=== PATIENT | female | born 1935 | race Caucasian/White ===

== ENCOUNTER 2017-06-05 10:52 | Inpatient (IN) | payer OTHER ==
[~2017-06-05] VITALS: Ht 172.7 cm; Wt 126.6 kg
--- NOTE | ~2017-06-05 | HC ---
[facility] [place] [address] CONSULTATION Name: TALATEHSAN XIMENA Room #: 355-P [facility] IN M.R.#: [id number] Admission: 06/05/17 Attend Phys: James Márquez MD Discharge: 06/11/17 Date of : 37 Report #: [id number] THIS REPORT FOR: //name// CC: James Pennington DATE OF SERVICE: 06/05/2017 HISTORY OF PRESENT ILLNESS: The patient is an 81-year-old female. I have known the patient, but not seen her professionally. I have seen her for 20 years. The patient apparently became sick approximately 2 weeks ago. She lives in [place], [place]. She was tested positive for influenza on 05/24/2017. This is now 06/05/2017. In any event, she had taken some medications and it is not exactly clear what, 1 pill for 5 days, but then went in with some progressive shortness of breath and had some cough, some intermittent fever, but then developed some chest pain, abdominal pain in [facility]. The troponin was 2.395, which is elevated over 0.56. Creatinine is 1.6. Chest x-ray was unremarkable. I have some of the records from [facility] before transfer. She is not completely clear on what her home medications are, she thinks lisinopril and may be a thyroid medicine. She has never had a cardiac issue before. EKG is sinus rhythm with delayed R waves, possibly T-wave inversions anteriorly and ST depression in V4 through V6. In comparison to the only EKG I see from [facility], this depression seems slightly more pronounced in the lateral leads. She is still complaining of some diffuse abdominal discomfort. She is somewhat of a difficult historian. There is no laboratory work drawn here, but I will obtain some currently and also a lipid profile. She says she has had no chest pain since she has been here, she is on a heparin drip, but complains of some tightness across the epigastric area and lower chest. She has been on lisinopril, hydrochlorothiazide, levothyroxine, lovastatin, meloxicam. PAST MEDICAL HISTORY: Positive for hypertension, some hypercholesterolemia, sinus surgery, DJD, hysterectomy, exploratory lap, sinus surgery. SOCIAL HISTORY: She is . She has children. No alcohol or tobacco use ever. FAMILY HISTORY: She states is strongly positive with multiple family members premature disease including her father. REVIEW OF SYSTEMS: Essentially negative, except for stated above, has not felt well for the last 2 weeks, but this discomfort is relatively recent. LABORATORY DATA: Pending, though we do not have any lab work here. H and H is 12.4 and 36, white count 8.5. Platelets 187, might add in BNP. PHYSICAL EXAMINATION: [facility] [address] [place] [address] CONSULTATION Name: EHSAN GILLILAND Room #: 355-P DIS IN M.R.#: [id number] Admission: 06/05/17 Attend Phys: James Márquez MD Discharge: 06/11/17 Date of : 37 Report #: [id number] GENERAL: She is alert. She does not appear to be overtly distressed, but she has some tightness, heparin drip is in place. VITAL SIGNS: Blood pressure 120/76, pulse is 78 and regular. HEENT: Eyes reveal xanthelasmas. Pharynx is clear. NECK: Shows preserved upstrokes without JVD or bruits. LUNGS: Clear. CARDIOVASCULAR: Regular rate and rhythm, S1, S2 distant. ABDOMEN: Obese. There is some diffuse tenderness in the epigastric area. EXTREMITIES: Reveal trace edema. Distal pulses were intact. NEUROLOGIC: Nonfocal. SKIN: Warm and dry without xanthoma or ulcer. MUSCULOSKELETAL: Valgus deformity of the knees. I did not ambulate her. Skin was warm and dry. ASSESSMENT: 1. Non-ST elevation myocardial infarction. 2. Recent influenza. 3. Hypertension. 4. Hypercholesterolemia. 5. Obesity. 6. Degenerative joint disease. 7. Chronic kidney disease. RECOMMENDATIONS AND PLAN: Would continue the heparin drip. We will obtain a troponin here at [facility]. An EKG which was just repeated shows some T-wave inversions V3 and then ST depression in the lateral leads. This looks like an ischemic response. Metoprolol and atorvastatin have been initiated as well as an aspirin. We will continue these. She will need to go to the catheterization lab presumably in the a.m., but I would like to evaluate the creatinine perhaps some time tomorrow depending on how we clinically do. We will get an echo Doppler in the morning. We will discuss with the patient and family. We will reevaluate for morning about the potential for the catheterization lab. We will hold her breakfast. Meloxicam may have been adding to the renal insufficiency. We will have more recommendations in the a.m. Thank you for asking me to assist in the care of this patient. <ELECTRONICALLY SIGNED> By: Gabriel Bosch MD, [facility] 06/16/17 1427 0557 Gabriel Bosch MD, FACC /nt
--- NOTE | ~2017-06-05 | EKG ---
[place] [address] [facility] [email or web address] [address] ELECTROCARDIOGRAM REPORT Name: EHSAN GILLILAND Room #: 355-P ADM IN M.R.#: [id number] Admission: 06/05/17 Attend Phys: James Márquez MD Discharge: Date of : 36 Report #: [id number] THIS REPORT FOR: //name// [facility] Test Date: 2017-06-05 Test Time: 20:32:44 Pat Name: EHSAN GILLILAND Department: Room: 355 Gender: F Match Up Person: Medina NAVARRETE : 1935 Requested By: Gabriel Bosch Order Number: [id number] MD: Tip Olvera Measurements Intervals [place] Rate: 78 P: 10 WI: 161 QRS: -27 QRSD: 99 T: 241 QT: 388 QTc: 442 Interpretive Statements Sinus rhythm Poor R wave progression Diffuse ST and T wave abnormality No previous ECG available for comparison Electronically Signed On 06-06-2017 7:48:58 BREAST SURGEON by Tip Olvera [email or web address] <ELECTRONICALLY SIGNED> By: Tip Olvera MD, [facility] 06/06/17 0748 31 31 Tip Olvera MD, FAC /EPI
--- NOTE | ~2017-06-05 | 2DMMODE ---
[facility] [address] [place] [address] 2 D/M-MODE ECHOCARDIOGRAM Name: TAMIADARRENEHSAN XIMENA Room #: 355-P ADM IN M.R.#: [id number] Admission: 06/05/17 Attend Phys: James Márquez MD Discharge: Date of : 37 Date of Service: 06/06/17 0929 Report #: [id number] THIS REPORT FOR: //name// APPROVED REPORT Study performed: 06/06/2017 08:28:48 EXAM: Comprehensive 2D, Doppler, and color-flow Echocardiogram Patient Location: Echo lab Room #: 355 Status: routine BSA: 2.36 HR: 82 bpm BP: 94/64 mmHg Rhythm: NSR Other Information Study Quality: Adequate Indications Elevated Troponin Chest Pain Hx: HTN, HLP, obesity 2D Dimensions RVDd: 43.85 mm LVEF(%): 52.61 (>50%) IVSd: 12.94 (7-11mm) LVOT Diam: 20.30 (18-24mm) LVDd: 33.91 mm PWd: 11.63 (7-11mm) Ascending Ao: 35.72 (22-36mm) LVDs: 25.01 (25-40mm) Aortic Root: 33.39 mm Alvarado's LVEF: 52.61 % Volumes Left Atrial Volume (Systole) Single Plane 4CH: 31.59 mL Single Plane 2CH: 41.81 mL LA ESV Index: 17.00 mL/m2 Aortic Valve AoV Peak Vladimir.: 1.37 m/s AO Peak Gr.: 7.48 mmHg LVOT Max P.70 mmHg LVOT Max V: 1.08 m/s BERE Vmax: 2.56 cm2 Mitral Valve [facility] [address] [place] [address] 2 D/M-MODE ECHOCARDIOGRAM Name: TALATEHSAN [facility] Room #: 355-P [facility] IN .R.#: [id number] Admission: 06/05/17 Attend Phys: James Márquez MD Discharge: Date of : 37 Date of Service: 06/06/17 0929 Report #: [id number] E/A Ratio: 0.6 MV Decel. Time: 408.95 ms MV E Max Vladimir.: 0.53 m/s MV A Vladimir.: 0.91 m/s MV PHT: 118.60 ms IVRT: 78.43 ms Pulmonary Valve PV Peak Vladimir.: 0.73 m/s PV Peak Gr.: 2.11 mmHg Tricuspid Valve TR Peak Vladimir.: 3.23 m/s RAP Estimate: 10.00 mmHg TR Peak Gr.: 41.72 mmHg PA Pressure: 52.00 mmHg Left Ventricle The left ventricle is normal size. There is normal LV segmental wall motion. Flattened septum consistent with right ventricular pressure/volume overload. Mild concentric left ventricular hypertrophy. Left ventricular systolic function is normal. LVEF is 55%. Mild diastolic dysfunction is present (impaired relaxation pattern). Right Ventricle Right ventricle is moderately dilated. Right ventricle is mildly hypokinetic. Atria The left atrium size is normal. Right atrium is moderately dilated. Aortic Valve Aortic valve is mildly calcified. Mild aortic regurgitation. There is no aortic valvular stenosis. Mitral Valve The mitral valve is normal in structure. Mild mitral regurgitation. Tricuspid Valve The tricuspid valve is normal in structure. Moderate tricuspid regurgitation. Moderate pulmonary hypertension. Estimated PAP is 52mmHg. Pulmonic Valve The pulmonary valve is normal in structure. Trace pulmonic [facility] [address] [place] [address] 2 D/M-MODE ECHOCARDIOGRAM Name: EHSAN GILLILAND [facility] Room #: 355-P ADM IN M.R.#: [id number] Admission: 06/05/17 Attend Phys: James Márquez MD Discharge: Date of : 37 Date of Service: 06/06/17 0929 Report #: [id number] regurgitation. Great Vessels The aortic root is normal in size. The ascending aorta is normal in size. IVC is dilated and collapses <50% with inspiration. Pericardium no effusion <Conclusion> The left ventricle is normal size. Mild concentric left ventricular hypertrophy. Left ventricular systolic function is normal. LVEF is 55%. Mild diastolic dysfunction is present (impaired relaxation pattern). Right ventricle is moderately dilated. Right ventricle is mildly hypokinetic. The left atrium size is normal. Right atrium is moderately dilated. Aortic valve is mildly calcified. Mild aortic regurgitation. There is no aortic valvular stenosis. Mild mitral regurgitation. Moderate tricuspid regurgitation. Moderate pulmonary hypertension. Estimated PAP is 52mmHg. No pericardial effusion <ELECTRONICALLY SIGNED> By: Gabriel Bosch MD, FACC 06/06/17928 8 8 Gabriel Bosch MD, FACC /INF
--- NOTE | ~2017-06-05 | EKG ---
[address] [place] [address] ELECTROCARDIOGRAM REPORT Name: EHSAN GILLILAND Room #: 355- ADM IN M.R.#: [id number] Admission: 06/05/17 Attend Phys: James Márquez MD Discharge: Date of : 37 Report #: [id number] THIS REPORT FOR: //name// [facility] Test Date: 2017-06-06 Test Time: 06:39:13 Pat Name: EHSAN GILLILAND Department: Room: 355 Gender: F Trial Attorney: SIXTO : 1935 Requested By: Cathryn Maya Order Number: [id number] MD: Tip Olvera Measurements Intervals Man Rate: 74 P: 34 VA: 169 QRS: -28 QRSD: 100 T: 263 QT: 434 QTc: 482 Interpretive Statements Sinus rhythm Borderline left axis deviation ST and T wave abnormality No previous ECG available for comparison Electronically Signed On 06-06-2017 7:56:59 STAFFING ADMINISTRATOR by Tip Olvera [email or web address] <ELECTRONICALLY SIGNED> By: Tip Olvera MD, [facility] 06/06/17 0756 0639 8 Tip Olvera MD, FACC /EPI
[2017-06-05 16:14] VITALS: BP 128/76
[2017-06-05 16:45] LABS: HEMATOCRIT 36.6 % (37.0-47.0); HEMOGLOBIN 12.4 gm/dL (12.0-15.0); MCHC 33.9 g/dL (28.0-37.0); MCV 82.5 fL (80.0-100.0); RBC 4.44 mil/uL (4.20-5.00); WBC 8.5 thou/uL (4.0-11.0)
[2017-06-05] MEDS ORDERED: HYDROCHLOROTHIA25 M2 PO (16:52)
[2017-06-05] MEDS ORDERED: SM TUSSIN DM PO (16:52)
[2017-06-05] MEDS ORDERED: OXYCODONE-ACET1 EACH PO (16:53)
[2017-06-05] MEDS ORDERED: LOVASTATIN40 MG PO (16:53)
[2017-06-05] MEDS ORDERED: MOBIC7.5 MG PO (16:53)
[2017-06-05] MEDS ORDERED: LISINOPRIL20 MG PO (16:53)
[2017-06-05] MEDS ORDERED: SYNTHROID25 MCG PO (16:53)
[2017-06-05 16:59] LABS: PROTIME 10.2 Seconds (9.3-11.4)
[2017-06-05 17:28] LABS: APTT 35.2 Seconds (24.5-32.8)
[2017-06-05 20:00] VITALS: BP 135/89
[2017-06-05 21:01] LABS: CALCIUM 8.3 mg/dL (8.5-10.1); CREATININE 1.3 mg/dL (0.6-1.0); POTASSIUM 3.2 mmol/L (3.5-5.1)
[2017-06-06] VITALS: BP 127/94; BP 130/78
[2017-06-06 03:33] LABS: HEMATOCRIT 36.4 % (37.0-47.0); HEMOGLOBIN 12.5 gm/dL (12.0-15.0); MCH 28.4 pg (26.0-34.0); MCHC 34.4 g/dL (28.0-37.0); MCV 82.6 fL (80.0-100.0); RBC 4.41 mil/uL (4.20-5.00); RDW 16.3 % (10.5-14.5); WBC 9.3 thou/uL (4.0-11.0)
[2017-06-06 03:41] LABS: ANION GAP 11 mmol/L (7-16); BUN 17 mg/dL (7-18); CALCIUM 8.5 mg/dL (8.5-10.1); CHLORIDE 104 mmol/L (98-107); CHOLESTEROL 163 mg/dL (<200); CO2 24 mmol/L (21-32); CREATININE 1.2 mg/dL (0.6-1.0); GLUCOSE 154 mg/dL (74-106); HDL CHOLESTEROL 41 mg/dL (>40); LDL CHOLESTEROL 95 mg/dL (<100); POTASSIUM 3.6 mmol/L (3.5-5.1); SODIUM 139 mmol/L (136-145); TRIGLYCERIDE 135 mg/dL (<150); VLDL 27 mg/dL (<40)
[2017-06-06 04:00] VITALS: BP 94/64
[2017-06-06 11:25] VITALS: BP 127/82
[2017-06-06 16:11] VITALS: BP 113/64
[2017-06-06 19:38] VITALS: BP 101/73
[2017-06-07 04:14] VITALS: BP 116/69
[2017-06-07 05:27] LABS: ABSOLUTE NEUTROPHILS 3.2 thou/uL (1.4-8.2); BASOPHILS 1.8 % (0.0-2.0); EOSINOPHILS 2.3 % (0.0-3.0); HEMATOCRIT 33.9 % (37.0-47.0); HEMOGLOBIN 11.3 gm/dL (12.0-15.0); LYMPHOCYTES 36.3 % (24.0-44.0); MCH 27.8 pg (26.0-34.0); MCHC 33.3 g/dL (28.0-37.0); MCV 83.5 fL (80.0-100.0); MONOCYTES 9.9 % (1.0-8.0); PLATELET COUNT 182 thou/uL (150-400); POLYS 49.7 % (36.0-66.0); RBC 4.06 mil/uL (4.20-5.00); WBC 6.4 thou/uL (4.0-11.0)
[2017-06-07 05:37] LABS: CALCIUM 8.4 mg/dL (8.5-10.1); CREATININE 1.1 mg/dL (0.6-1.0); POTASSIUM 3.7 mmol/L (3.5-5.1)
[2017-06-07 08:03] VITALS: BP 127/81
[2017-06-07 11:38] VITALS: BP 150/96
[2017-06-07 16:32] VITALS: BP 133/83
[2017-06-07 18:55] VITALS: BP 127/69
[2017-06-08 04:07] VITALS: BP 136/75
[2017-06-08 09:03] VITALS: BP 114/72
[2017-06-08 20:30] VITALS: BP 123/78
[2017-06-09 04:30] VITALS: BP 135/94
[2017-06-09 16:29] VITALS: BP 113/79
[2017-06-09 20:30] VITALS: BP 118/67
[2017-06-10 04:00] VITALS: BP 132/77
[2017-06-10 08:44] VITALS: BP 105/83
[2017-06-10] MEDS ORDERED: XARELTO15 MG PO (13:30)
[2017-06-10] MEDS ORDERED: XARELTO20 MG PO (13:49)
[2017-06-10 16:03] VITALS: BP 117/85
[2017-06-10 20:05] VITALS: BP 111/73
[2017-06-11 04:00] VITALS: BP 125/79
[2017-06-11 05:41] LABS: ABSOLUTE NEUTROPHILS 5.8 thou/uL (1.4-8.2); EOSINOPHILS 1.1 % (0.0-3.0); HEMATOCRIT 35.2 % (37.0-47.0); HEMOGLOBIN 11.9 gm/dL (12.0-15.0); LYMPHOCYTES 24.8 % (24.0-44.0); MCH 28.2 pg (26.0-34.0); MCHC 33.9 g/dL (28.0-37.0); MCV 83.2 fL (80.0-100.0); MONOCYTES 11.3 % (1.0-8.0); PLATELET COUNT 205 thou/uL (150-400); POLYS 60.8 % (36.0-66.0); RBC 4.23 mil/uL (4.20-5.00); RDW 16.2 % (10.5-14.5); WBC 9.5 thou/uL (4.0-11.0)
[2017-06-11 05:44] LABS: CALCIUM 8.8 mg/dL (8.5-10.1); CREATININE 1.2 mg/dL (0.6-1.0); MAGNESIUM 2.1 mg/dL (1.8-2.4); POTASSIUM 3.7 mmol/L (3.5-5.1)
[2017-06-11 08:06] VITALS: BP 111/76
[2017-06-11] MEDS ORDERED: DELSYM COU30 MG/5 M1 PO (11:58)
[2017-06-11] MEDS ORDERED: METOPROLOL SUCC25 M1 PO (12:01)
[2017-06-11 12:13] VITALS: BP 111/76
[2017-06-11 12:19] VITALS: BP 111/76
[2017-06-11 14:50] VITALS: BP 111/76
== END 2017-06-11 15:24 | disposition home health service (06) | DRG 175 ==
LOC: 3W 10:52 → ENTRNSPT 06-11 15:17 → EDTRNSPTSTS 06-11 15:22 → 3W 06-11 15:24
PROVIDERS: Hospitalist; Internal Medicine Cardiovascular Disease; Nurse Practitioner
DX: I26.99 Other pulmonary embolism without acute cor pulmonale (principal); J96.00 Acute respiratory failure, unspecified whether with hypoxia or hypercapnia; N17.9 Acute kidney failure, unspecified; Z68.41 Body mass index [BMI] 40.0-44.9, adult; I10 Essential (primary) hypertension; E78.00 Pure hypercholesterolemia, unspecified; M19.90 Unspecified osteoarthritis, unspecified site; N18.9 Chronic kidney disease, unspecified; E78.5 Hyperlipidemia, unspecified; M54.16 Radiculopathy, lumbar region; E03.9 Hypothyroidism, unspecified; M10.9 Gout, unspecified; Z90.710 Acquired absence of both cervix and uterus; Z88.2 Allergy status to sulfonamides; Z90.49 Acquired absence of other specified parts of digestive tract
CPT/HCPCS: 10779

== ENCOUNTER 2018-01-26 14:08 | Emergency (ER) | payer OTHER ==
[~2018-01-26] VITALS: Ht 172.7 cm; Wt 131.5 kg
[~2018-01-26 14:08] MED LIST: DELSYM COU30 MG/5 M1 PO; HYDROCHLOROTHIA25 M2 PO; LISINOPRIL20 MG PO; LOVASTATIN40 MG PO; METOPROLOL SUCC25 M1 PO; MOBIC7.5 MG PO; OXYCODONE-ACET1 EACH PO; SM TUSSIN DM PO; SYNTHROID25 MCG PO; XARELTO15 MG PO; XARELTO20 MG PO
[2018-01-26 15:51] LABS: HEMATOCRIT 33.1 % (37.0-47.0); HEMOGLOBIN 11.1 gm/dL (12.0-15.0); MCH 27.5 pg (26.0-34.0); MCHC 33.5 g/dL (28.0-37.0); MCV 82.2 fL (80.0-100.0); PLATELET COUNT 243 thou/uL (150-400); RBC 4.02 mil/uL (4.20-5.00); RDW 16.2 % (10.5-14.5); WBC 7.4 thou/uL (4.0-11.0)
[2018-01-26 15:58] LABS: CALCIUM 9.7 mg/dL (8.5-10.1); CREATININE 1.1 mg/dL (0.6-1.0)
[2018-01-26 16:13] LABS: ABSOLUTE NEUTROPHILS 4.2 thou/uL (1.4-8.2); PLATELET ESTIMATE NORMAL
[2018-01-26] MEDS ORDERED: KEFLEX500 M1 PO (16:45)
== END 2018-01-26 17:41 | disposition home or self-care (01) ==
LOC: ER 14:08
PROVIDERS: Physician Assistant
DX: L03.115 Cellulitis of right lower limb (principal); L03.116 Cellulitis of left lower limb; I10 Essential (primary) hypertension; Z88.2 Allergy status to sulfonamides; Z88.8 Allergy status to other drugs, medicaments and biological substances; Z90.710 Acquired absence of both cervix and uterus; Z90.49 Acquired absence of other specified parts of digestive tract